=== PATIENT | male | born 1980 | race Two or more races ===

== ENCOUNTER 2024-05-16 19:48 | Emergency (ER) | payer OTHER ==
[~2024-05-16] VITALS: Ht 170.2 cm; Wt 81.6 kg
[2024-05-16] MEDS ORDERED: PROAIR RESPICL90 MCG IH (20:16)
[2024-05-16] MEDS ORDERED: TRELEGY ELLIPT1 EACH IH (20:16)
[2024-05-16] MEDS ORDERED: 0.9 % SODIUM CHLORIDE 1,000 ML IV SCH (21:15)
[2024-05-16 21:40] LABS: HEMATOCRIT 46.4 % (39.0-48.0); HEMOGLOBIN 16.3 g/dL (13-16.00); MEAN CORPUSCULAR HEMOGLOBIN 31.3 pg (27.00-32.0); MEAN CORPUSCULAR HGB CONC 35.1 g/dl (32.0-36.0); PLATELET COUNT 358 K/uL (150-450); RED BLOOD COUNT 5.21 M/uL (4.00-6.00)
[2024-05-16 22:03] LABS: BILIRUBIN TOTAL 1.81 mg/dL (0.3-1.2); CALCIUM 10.2 mg/dL (8.5-10.1); CREATININE SERUM 0.87 mg/dL (0.70-1.30); GFR 96.23; POTASSIUM 4.37 mEq/L (3.5-5.1)
== END 2024-05-16 23:44 | disposition home or self-care (01) ==
LOC: ER 19:48
PROVIDERS: Emergency Medicine
DX: R55 Syncope and collapse (principal); Z88.0 Allergy status to penicillin
CPT/HCPCS: 36415; 93005; 96365; 96366; 99282; J7030